=== PATIENT | male | born 1990 | race African-American/Black ===

== ENCOUNTER 2019-02-03 00:09 | Emergency (ER) | payer SELFPAY ==
[~2019-02-03] VITALS: Ht 185 cm; Wt 100.0 kg
[~2019-02-03 00:09] MED LIST: MUPI15CR10 TP; PERM60CR10 TP
[2019-02-03] MEDS ORDERED: TETANUS,DIPTH,PERTUSS P/F (BOOSTRIX) 0.5 ML VIAL IM ONE (01:45)
[2019-02-03] MEDS ORDERED: RX-TRIMETH/SULFA. 160-800 MG (BACTRIM DS) TAB PPK#2 PO STA (02:09)
[2019-02-03] MEDS ORDERED: RX-MUPIROCIN (BACTROBAN) 2% OINT 22 GM TUBE TOP STA (02:09)
[2019-02-03] MEDS ORDERED: MUPI1OIN6 TP (02:14)
[2019-02-03] MEDS ORDERED: SULF1TAB35 PO (02:14)
--- NOTE | 2019-02-03 02:14 | ED Upper Extremity ---
General Chief Complaint: Upper Extremity Stated Complaint: RT INDEX FINGER PAIN Nursing Triage Note: PT SMASHED INDEX FINGER OF R HAND AROUND 0700 TODAY, VERBALIZES NUMBNESS TO THE TIP OF THE FINGER. Nursing Sepsis Screen: No Definite Risk Allergies and Home Medications Allergies Coded Allergies: No Known Drug Allergies (Unverified , 03/04/14) Home Medications Mupirocin Calcium 15 Gm Cream..g., 15 GM TP BID Apply twice daily to right elbow Prescribed by: JERI BELLAMY on 08/25/14 1304 Permethrin 60 Gm Cream.gm., 60 GM TP ONCE Prescribed by: JERI BELLAMY on 08/25/14 1304 Past Qkoliyf-Umhzpx-Rqvqna Hx Patient Social History Alcohol Use: Occasionally Uses Alcohol Beverage of Choice: Beer Recreational Drug Use: Yes Drug of Choice: MARIJUANA Smoking Status: Current Everyday Smoker Type Used: Cigarettes Recent Foreign Travel: No Contact w/Someone Who Travel: No Recent Infectious Disease Expo: No Immunizations Up To Date Tetanus Booster (TDap): Less than 5yrs PED Vaccines UTD: Yes Seasonal Allergies Seasonal Allergies: No Past Medical History Surgeries: No Respiratory: No Cardiac: No Neurological: No Reproductive Disorders: No Sexually Transmitted Disease: No HIV/AIDS: No Genitourinary: No Gastrointestinal: No Musculoskeletal: No Endocrine: No HEENT: No Cancer: No Psychosocial: No Integumentary: No Blood Disorders: No Adverse Reaction/Blood Tranf: No Family Medical History Asthma Physical Exam Vital Signs Vital Signs - First Documented 02/03/19 00:33 Temp 37.0 Pulse 56 Resp 20 B/P (MAP) 125/71 (89) Pulse Ox 98 O2 Delivery Room Air Capillary Refill : Less Than 3 Seconds Height, Weight, BMI Height: 6'1" Weight: 240lbs. oz. 108.471791je; 29.00 BMI Method: Progress/Results/Core Measures Results/Orders My Orders Orders - CLOVIS FREITAS DO Finger(S) (02/03/19 01:37) Dipht,Pertuss(Acell),Tet Adult (Boostrix (02/03/19 01:45) Rx-Mupirocin 2% Oint (Rx-Bactroban) (02/03/19 02:09) Rx-Trimeth/Sulfameth Ds Tab (Rx-Bactrim/ (02/03/19 02:09) Wound Dressing-Ed (02/03/19 02:09) Vital Signs/I&O 02/03/19 00:33 Temp 37.0 Pulse 56 Resp 20 B/P (MAP) 125/71 (89) Pulse Ox 98 O2 Delivery Room Air Blood Pressure Mean: 89 Departure Impression Primary Impression: Laceration of right index finger Additional Impressions: Crushing injury of right index finger, initial encounter Xlrjnvbqik-kegzziieu-zevkcqx (DPT) vaccination administered at current visit Disposition: 01 HOME, SELF-CARE Condition: Stable Departure-Patient Inst. [facility]errals: [facility] Patient Instructions: Contusion (DC), Crush Injury (DC), Diphtheria and Tetanus Toxoids, and Acellular Pertussis Vaccine, Wound Care (DC) Add. Discharge Instructions: CLEAN WOUND TWICE A DAY WITH ANTIBACTERIAL SOAP AND WATER, APPLY ANTIBIOTIC OINTMENT AND FRESH DRESSING TWICE A DAY TYLENOL AND MOTRIN NEEDED FOR PAIN FOLLOW UP WITH [facility] IN 2 DAYS FOR RECHECK AND FURTHER CARE All discharge instructions reviewed with patient and/or family. Voiced understanding. Scripts Mupirocin (Mupirocin) 1 Gm Oin.pf.victoria 1 GM TP BID, #22 TUBE Prov: CLOVIS FREITAS DO 02/03/19 Sulfamethoxazole/Trimethoprim (Bactrim Ds Tablet) 1 Each Tablet 1 EACH PO BID, #20 TAB Prov: CLOVIS FREITAS DO 02/03/19 CLOVIS FREITAS DO Feb 03, 2019 02:14
[2019-02-03 02:34] VITALS: BP 144/90
--- NOTE | 2019-02-03 06:56 | Diagnostic Imaging Report ---
INDICATION: Pain. 3 views were obtained. FINDINGS: The osseous alignment is normal. There is no acute fracture or dislocation. The soft tissues are unremarkable. IMPRESSION: No acute abnormality. Dictated by: Dictated on workstation # [id number]
== END 2019-02-03 02:33 | disposition home or self-care (01) ==
LOC: EDUNIT# 00:09 → ER 00:13
DX: S61.210A Laceration without foreign body of right index finger without damage to nail, initial encounter (principal); S67.190A Crushing injury of right index finger, initial encounter; F17.210 Nicotine dependence, cigarettes, uncomplicated; Z23 Encounter for immunization; W22.8XXA Striking against or struck by other objects, initial encounter
CPT/HCPCS: 73140; 90471; 90715

== ENCOUNTER 2019-09-24 15:44 | Emergency (ER) | payer SELFPAY ==
[~2019-09-24] VITALS: Ht 185 cm; Wt 102.0 kg
[~2019-09-24 15:44] MED LIST changes: +MUPI1OIN6 TP; +SULF1TAB35 PO
[2019-09-24 16:32] LABS: BILIRUBIN,URINE NEGATIVE (NEGATIVE); CLARITY,URINE CLEAR; COLOR,URINE YELLOW; GLUCOSE, URINE (UA) NEGATIVE (NEGATIVE); KETONES,URINE NEGATIVE (NEGATIVE); LEUKOCYTE ESTERASE ,URINE NEGATIVE (NEGATIVE); NITRITE,URINE NEGATIVE (NEGATIVE); PROTEIN,URINE NEGATIVE (NEGATIVE)
[2019-09-24] MEDS ORDERED: KETOROLAC 60 MG/2 ML VIAL IM STA (16:38)
--- NOTE | 2019-09-24 16:38 | ED Back Pain ---
General Chief Complaint: Back Problems Stated Complaint: LOW BACK PAIN Nursing Triage Note: PT STATES HE GOT UP THIS MORNING AND STREATCHED OUT AND GOT A PAIN IN HIS LOW BACK THAT DROPPED HIM TO HIS KNEES. HX OF SOME BACK ISSUES Nursing Sepsis Screen: No Definite Risk History of Present Illness Date Seen by Provider: September 24, 2019 Time Seen by Provider: 16:10 Initial Comments 29-year-old -[place]ian male reports playing volleyball with his young children yesterday evening. He had no pain overnight but when he awoke this morning he stretched and felt a pull in his low back. Pain radiates at times into both legs. He denies any bowel or bladder incontinence or retention. He has occasional low back pain but nothing chronic that he requires medication for. Location: Lumbar Spine, Paraspinous Muscles Timing/Duration: 12-24 Hours Severity: Moderate Pain/Injury Location: Back Radiation: Buttocks, Lower Legs, Upper Legs Method of Injury: Other (sports activity) Associated Symptoms: muscle spasms, weakness (Bilat LEs), tingling in legs/feet, lower back pain; No loss of bladder control, No loss of bowel control Allergies and Home Medications Allergies Coded Allergies: No Known Drug Allergies (Unverified , 03/04/14) Home Medications Cyclobenzaprine HCl 10 Mg Tablet, 10 MG PO Q8H PRN for SPASMS Prescribed by: ABIGAIL ANTONIO on 09/24/19 1723 Mupirocin 1 Gm Oin.pf.victoria, 1 GM TP BID Prescribed by: CLOVIS FREITAS on 02/03/19213 Mupirocin Calcium 15 Gm Cream..g., 15 GM TP BID Apply twice daily to right elbow Prescribed by: JERI BELLAMY on 08/25/14 1304 Permethrin 60 Gm Cream.gm., 60 GM TP ONCE Prescribed by: JERI BELLAMY on 08/25/14 1304 Sulfamethoxazole/Trimethoprim 1 Each Tablet, 1 EACH PO BID Prescribed by: CLOVIS FREITAS on 02/03/19213 Patient Home Medication List Home Medication List Reviewed: Yes Review of Systems Constitutional: no symptoms reported, see HPI Musculoskeletal: see HPI, back pain, muscle stiffness, muscle cramps All Other Systems Reviewed Negative Unless Noted: Yes Past Hikwnvx-Gpidqp-Upshbr Hx Past Med/Social Hx: Reviewed Nursing Past Med/Soc Hx Patient Social History Alcohol Use: Occasionally Uses Number of Drinks Today: AA Alcohol Beverage of Choice: Beer Recreational Drug Use: Yes Drug of Choice: MARIJUANA Smoking Status: Current Everyday Smoker Type Used: Cigarettes Recent Foreign Travel: No Contact w/Someone Who Travel: No Recent Infectious Disease Expo: No Recent Hopitalizations: No Immunizations Up To Date Tetanus Booster (TDap): Less than 5yrs PED Vaccines UTD: Yes Seasonal Allergies Seasonal Allergies: No Past Medical History Surgeries: No Respiratory: No Cardiac: No Neurological: No Reproductive Disorders: No Sexually Transmitted Disease: No HIV/AIDS: No Genitourinary: No Gastrointestinal: No Musculoskeletal: No (OCCATIONAL BACK PAIN) Endocrine: No HEENT: No Cancer: No Psychosocial: No Integumentary: No Blood Disorders: No Adverse Reaction/Blood Tranf: No Family Medical History Asthma Physical Exam Vital Signs Vital Signs - First Documented 09/24/19 16:09 Temp 36.9 Pulse 63 Resp 18 B/P (MAP) 127/84 (98) Pulse Ox 98 O2 Delivery Room Air Capillary Refill : Less Than 3 Seconds Height, Weight, BMI Height: 6'1" Weight: 240lbs. oz. 108.914552vl; 29.00 BMI Method: General Appearance: No Apparent Distress, WD/WN, Mild Distress (secondary to pain) Cardiovascular: Regular Rate, Rhythm, No Edema, No Murmur, Normal Peripheral Pulses Respiratory: Chest Non Tender, Lungs Clear, Normal Breath Sounds Back: Normal Inspection, Decreased Range of Motion (secondary to pain), Muscle Spasm; No Vertebral Tenderness; Other (ambulates with an antalgic gait, able to walk on toes and heels. Power V/V L4-S1 ) Extremity: Normal Capillary Refill, Normal Inspection, No Calf Tenderness, No Pedal Edema Neurologic/Psychiatric: Alert, Oriented x3, No Motor/Sensory Deficits, Normal Mood/Affect Skin: Normal Color, Warm/Dry Progress/Results/Core Measures Results/Orders Lab Results Laboratory Tests Test 09/24/19 16:20 Range/Units Urine Color YELLOW Urine Clarity CLEAR Urine pH 7.0 5-9 Urine Specific [place] 1.015 L 1.016-1.022 Urine Protein NEGATIVE NEGATIVE Urine Glucose (UA) NEGATIVE NEGATIVE Urine Ketones NEGATIVE NEGATIVE Urine Nitrite NEGATIVE NEGATIVE Urine Bilirubin NEGATIVE NEGATIVE Urine Urobilinogen 0.2 < = 1.0 MG/DL Urine Leukocyte Esterase NEGATIVE NEGATIVE Urine RBC (Auto) NEGATIVE NEGATIVE Urine RBC NONE /HPF Urine WBC 0-2 /HPF Urine Crystals NONE /LPF Urine Bacteria TRACE /HPF Urine Casts NONE /LPF Urine Mucus NEGATIVE /LPF Urine Culture Indicated NO Urine Opiates Screen NEGATIVE NEGATIVE Urine Oxycodone Screen NEGATIVE NEGATIVE Urine Methadone Screen NEGATIVE NEGATIVE Urine Propoxyphene Screen NEGATIVE NEGATIVE Urine Barbiturates Screen NEGATIVE NEGATIVE Ur Tricyclic Antidepressants Screen NEGATIVE NEGATIVE Urine Phencyclidine Screen NEGATIVE NEGATIVE Urine Amphetamines Screen NEGATIVE NEGATIVE Urine Methamphetamines Screen NEGATIVE NEGATIVE Urine Benzodiazepines Screen NEGATIVE NEGATIVE Urine Cocaine Screen POSITIVE H NEGATIVE Urine Cannabinoids Screen POSITIVE H NEGATIVE My Orders Orders - ABIGAIL ANTONIO Orphenadrine Injection (Norflex Injectio (09/24/19 16:45) Ketorolac Injection (Toradol Injection) (09/24/19 16:38) Lumbar Spine - 2-3 Views (09/24/19 16:38) Medications Given in ED Current Medications Medications Dose Ordered Sig/Joe Route Start Time Stop Time Status Last Admin Dose Admin Orphenadrine Citrate 60 mg ONCE ONCE IM 09/24/19 16:45 09/24/19 16:46 DC 09/24/19 16:50 60 MG Vital Signs/I&O 09/24/19 09/24/19 09/24/19 16:09 16:50 17:41 Temp 36.9 36.9 36.9 Pulse 63 63 Resp 18 18 B/P (MAP) 127/84 (98) 127/84 (98) Pulse Ox 98 98 O2 Delivery Room Air Room Air Blood Pressure Mean: 98 Diagnostic Imaging Diagonstic Imaging: Xray Plain Films/CT/US/NM/MRI: other (L-spine) Comments NAME: DELROYSANDRINE J MED REC#: [id number] PT STATUS: REG ER : 1990 PHYSICIAN: ABIGAIL ANTONIO ADMIT DATE: 09/24/19/ER Draft Date of Exam:09/24/19 LUMBAR SPINE - 2-3 VIEWS INDICATION: Severe lower back pain starting last night after hitting volleyball. TECHNIQUE: AP, lateral and spot imaging of the lumbar spine. CORRELATION STUDY: None. FINDINGS: The lumbar spinal curvature and alignment are within normal limits. Apart from minimal anterior wedging of the L1 and T12 vertebral bodies, the lumbar vertebral body heights and disc spaces are maintained. No fracture or malalignment is seen. IMPRESSION: No radiographic evidence for acute bony abnormality of the lumbar spine. Given symptoms and history, if further evaluation is desired, MRI would be recommended. Dictated on workstation # [id number] Dict: 09/24/19 1706 Trans: 09/24/19 1710 [id number] [id number] Interpreted by: ADELIA SWIFT DO Electronically signed by: Reviewed: Reviewed by Me Departure Impression Primary Impression: Acute lumbar back pain Qualified Codes: M54.42 - Lumbago with sciatica, left side; M54.41 - Lumbago with sciatica, right side Disposition: 01 HOME, SELF-CARE Condition: Improved Departure-Patient Inst. Decision time for Depature: 17:15 Referrals: [facility] JERED,LOCAL PHYSICIAN (PCP) Primary Care Physician Patient Instructions: Low Back Pain (DC), Lumbar Muscle Strain (DC) Add. Discharge Instructions: Alternate heat and ice to low back for 20 minutes at a time. Alternate between ibuprofen 600 mg and Tylenol 650 mg every 4 hours for pain. Follow up with a primary care provider, if symptoms worsen or do not improve. Use muscle relaxant every 8 hours, as needed. Return to the emergency department for new, urgent health care needs for a few have bowel or bladder retention or incontinence. All discharge instructions reviewed with patient and/or family. Voiced understanding. Scripts Cyclobenzaprine HCl (Cyclobenzaprine HCl) 10 Mg Tablet 10 MG PO Q8H PRN for SPASMS, #15 TAB 0 Refills Prov: ABIGAIL ANTONIO 09/24/19 ABIGAIL ANTONIO September 24, 2019 16:38
[2019-09-24 16:41] LABS: WBC,URINE 0-2 /HPF
[2019-09-24 16:42] LABS: BACTERIA,URINE TRACE /HPF
[2019-09-24] MEDS ORDERED: ORPHENADRINE 60 MG/2 ML (NORFLEX) AMP IM ONE (16:45)
[2019-09-24 16:47] LABS: AMPHETAMINE SCREEN, URINE NEGATIVE (NEGATIVE); BARBITURATE SCREEN URINE NEGATIVE (NEGATIVE); BENZODIAZEPINES SCREEN URINE NEGATIVE (NEGATIVE); CANNABINOID SCREEN, URINE POSITIVE (NEGATIVE); COCAINE SCREEN URINE POSITIVE (NEGATIVE); METHADONE STAT NEGATIVE (NEGATIVE); METHAMPHETAMINE SCREEN URINE S NEGATIVE (NEGATIVE); OPIATE SCREEN URINE NEGATIVE (NEGATIVE); OXYCODONE STAT NEGATIVE (NEGATIVE); PROPOXYPHENE STAT NEGATIVE (NEGATIVE); TRICYCLIC ANTIDEPRESSANTS SCRE NEGATIVE (NEGATIVE)
--- NOTE | 2019-09-24 17:10 | Diagnostic Imaging Report ---
INDICATION: Severe lower back pain starting last night after hitting volleyball. TECHNIQUE: AP, lateral and spot imaging of the lumbar spine. CORRELATION STUDY: None. FINDINGS: The lumbar spinal curvature and alignment are within normal limits. Apart from minimal anterior wedging of the L1 and T12 vertebral bodies, the lumbar vertebral body heights and disc spaces are maintained. No fracture or malalignment is seen. IMPRESSION: No radiographic evidence for acute bony abnormality of the lumbar spine. Given symptoms and history, if further evaluation is desired, MRI would be recommended. Dictated by: Dictated on workstation # [id number]
[2019-09-24] MEDS ORDERED: CYCL10TA9 PO (17:23)
[2019-09-24 17:41] VITALS: BP 127/84
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
== END 2019-09-24 17:40 | disposition home or self-care (01) ==
LOC: EDUNIT# 15:44 → ER 15:45
DX: M54.5 Low back pain (principal); F17.210 Nicotine dependence, cigarettes, uncomplicated; X50.9XXA Other and unspecified overexertion or strenuous movements or postures, initial encounter
CPT/HCPCS: 72100; 80306; 81000; 96372

== ENCOUNTER 2022-10-01 01:09 | Emergency (ER) | payer SELFPAY ==
[~2022-10-01] VITALS: Ht 180.3 cm; Wt 113.4 kg
[~2022-10-01 01:09] MED LIST changes: +CYCL10TA25 PO; -SULF1TAB35 PO; +SULF1TAB38 PO
[2022-10-01] MEDS ORDERED: LACTATED RINGERS 1,000 ML IV ONE (01:30)
[2022-10-01] MEDS ORDERED: TETANUS,DIPTH,PERTUSS P/F (BOOSTRIX) 0.5 ML VIAL IM ONE (01:30)
[2022-10-01 01:36] LABS: BASOPHILS % (AUTO) 0 % (0-10); EOSINOPHILS # (AUTO) 0.1 10^3/uL (0.0-0.3); EOSINOPHILS % (AUTO) 1 % (0-10); HEMATOCRIT 47 % (40-54); HEMOGLOBIN 15.9 g/dL (13.3-17.7); LYMPHOCYTES # (AUTO) 5.8 10^3/uL (1.0-4.0); LYMPHOCYTES % (AUTO) 59 % (12-44); MEAN CORPUSCULAR HEMOGLOBIN 27 pg (25-34); MEAN CORPUSCULAR HGB CONC 34 g/dL (32-36); MEAN CORPUSCULAR VOLUME 80 fL (80-99); MONOCYTES # (AUTO) 0.7 10^3/uL (0.0-1.0); MONOCYTES % (AUTO) 7 % (0-12); NEUTROPHILS # (AUTO) 3.2 10^3/uL (1.8-7.8); NEUTROPHILS % (AUTO) 33 % (42-75); PLATELET COUNT 261 10^3/uL (130-400); WHITE BLOOD COUNT 9.9 10^3/uL (4.3-11.0)
[2022-10-01 01:43] LABS: ALBUMIN 4.6 GM/DL (3.2-4.5); CHLORIDE 106 MMOL/L (98-107); POTASSIUM 3.5 MMOL/L (3.6-5.0); PROTHROMBIN TIME PATIENT 13.9 SEC (12.2-14.7); SODIUM 140 MMOL/L (135-145)
[2022-10-01 01:44] LABS: AMYLASE 95 U/L (25-125); CALCIUM 10.2 MG/DL (8.5-10.1)
[2022-10-01 01:46] LABS: GLUCOSE 111 MG/DL (70-105); TOTAL PROTEIN 7.9 GM/DL (6.4-8.2)
[2022-10-01 01:47] LABS: BILIRUBIN,TOTAL 0.5 MG/DL (0.1-1.0); CARBON DIOXIDE 20 MMOL/L (21-32)
[2022-10-01 01:49] LABS: ALKALINE PHOSPHATASE 49 U/L (40-136); CREATININE SERUM 1.09 MG/DL (0.60-1.30); GFR ESTIMATED 92
[2022-10-01 01:50] LABS: BUN/CREATININE RATIO 6
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
[2022-10-01 01:52] LABS: ALANINE AMINOTRANSFERASE 37 U/L (0-55); MAGNESIUM 1.9 MG/DL (1.6-2.4)
[2022-10-01 01:53] LABS: CREATINE KINASE 264 U/L (30-200); LIPASE 72 U/L (8-78)
[2022-10-01 02:00] LABS: CREATINE KINASE MB 1.8 NG/ML (<6.6)
[2022-10-01 02:01] LABS: ACETAMINOPHEN < 10 UG/ML (10-30)
[2022-10-01 02:54] LABS: BILIRUBIN,URINE NEGATIVE (NEGATIVE); CLARITY,URINE CLEAR; COLOR,URINE YELLOW; GLUCOSE, URINE (UA) NEGATIVE (NEGATIVE); KETONES,URINE NEGATIVE (NEGATIVE); LEUKOCYTE ESTERASE ,URINE NEGATIVE (NEGATIVE); NITRITE,URINE NEGATIVE (NEGATIVE); PROTEIN,URINE NEGATIVE (NEGATIVE)
[2022-10-01] MEDS ORDERED: NS 100 ML (IVPB) BAG IV ONE (03:00)
[2022-10-01] MEDS ORDERED: IOHEXOL 350 MG/ML 100 ML (OMNIPAQUE 350) VIAL IV ONE (03:00)
[2022-10-01] MEDS ORDERED: CATHETER FLUSH 10 ML SYR IV PRN (03:00)
[2022-10-01 03:11] LABS: BACTERIA,URINE NEGATIVE /HPF; HYALINE CASTS, URINE 0-2 /LPF; SQUAMOUS EPITHELIAL CELL,UR RARE /HPF; WBC,URINE RARE /HPF
[2022-10-01] MEDS ORDERED: RX-MUPIROCIN (BACTROBAN) 2% OINT 22 GM TUBE TOP STA (03:11)
[2022-10-01 03:12] LABS: AMPHETAMINE SCREEN, URINE NEGATIVE (NEGATIVE); BARBITURATE SCREEN URINE NEGATIVE (NEGATIVE); BENZODIAZEPINES SCREEN URINE NEGATIVE (NEGATIVE); CANNABINOID SCREEN, URINE POSITIVE (NEGATIVE); COCAINE SCREEN URINE POSITIVE (NEGATIVE); METHADONE STAT NEGATIVE (NEGATIVE); OPIATE SCREEN URINE NEGATIVE (NEGATIVE); OXYCODONE STAT NEGATIVE (NEGATIVE); PROPOXYPHENE STAT NEGATIVE (NEGATIVE); TRICYCLIC ANTIDEPRESSANTS SCRE NEGATIVE (NEGATIVE)
[2022-10-01] MEDS ORDERED: ceFAZolin INJECTION 1,000 MG VIAL IV ONE (03:15)
[2022-10-01] MEDS ORDERED: ORPHENADRINE 60 MG/2 ML (NORFLEX) AMP (ED ONLY) IV ONE (03:15)
[2022-10-01] MEDS ORDERED: KETOROLAC 30 MG/ML VIAL IVP ONE (03:15)
[2022-10-01] MEDS ORDERED: TIZA-186 PO (03:19)
[2022-10-01] MEDS ORDERED: KETO10TA PO (03:19)
[2022-10-01] MEDS ORDERED: CLIN-144 PO (03:19)
[2022-10-01 03:53] VITALS: BP 146/101
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
--- NOTE | 2022-10-01 07:11 | Diagnostic Imaging Report ---
HISTORY: Hand pain TECHNIQUE: 3 views of the left hand COMPARISON: None FINDINGS: No acute fracture or dislocation is seen in the left hand. Alignment appears normal and joint spaces are preserved. No cortical erosions are seen. There is mild degenerative change in the 5th DIP joint. There is a punctate hyperdensity which appears to be external to the patient at the medial side of the 3rd finger. IMPRESSION: 1. No acute osseous abnormality seen in the left hand. Dictated by: Dictated on workstation # [id number]
--- NOTE | 2022-10-01 07:11 | Diagnostic Imaging Report ---
HISTORY: Pelvic pain TECHNIQUE: Frontal view of the pelvis COMPARISON: None FINDINGS: No acute fracture is seen on this single view of the pelvis. Alignment is normal. The femoral heads are well-seated in the acetabula bilaterally. Joint spaces are generally preserved. There is contrast in the bladder. IMPRESSION: 1. No acute osseous abnormality is seen on this single view of the pelvis. Dictated by: Dictated on workstation # [id number]
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
== END 2022-10-01 03:53 | disposition home or self-care (01) ==
LOC: EDUNIT# 01:09 → ER 01:12
DX: S09.90XA Unspecified injury of head, initial encounter (principal); S01.511A Laceration without foreign body of lip, initial encounter; S16.1XXA Strain of muscle, fascia and tendon at neck level, initial encounter; S39.012A Strain of muscle, fascia and tendon of lower back, initial encounter; S80.212A Abrasion, left knee, initial encounter; S80.211A Abrasion, right knee, initial encounter; S50.312A Abrasion of left elbow, initial encounter; S50.311A Abrasion of right elbow, initial encounter; S50.811A Abrasion of right forearm, initial encounter; S30.811A Abrasion of abdominal wall, initial encounter; F17.210 Nicotine dependence, cigarettes, uncomplicated; Z23 Encounter for immunization; Z28.310 Unvaccinated for COVID-19; V20.99XA Unspecified rider of other motorcycle injured in collision with pedestrian or animal in traffic accident, initial encounter; Y92.410 Unspecified street and highway as the place of occurrence of the external cause
CPT/HCPCS: 70450; 70486; 71045; 71260; 72125; 72128; 72131; 72170; 73080; 73130; 73564; 74177; 80053; 80306; 81000; 82150; 82550; 82553; 83690; 83735; 83874; 85025; 85610; 85730; 93041; 99285; G0480 ×2; 36415; 80320; 80329; 90715